=== PATIENT | male | born 1970 | race Caucasian/White ===

== ENCOUNTER 2018-08-18 21:30 | Inpatient (IN) | payer OTHER ==
--- NOTE | 2018-08-18 22:31 | C.PDOC ---
History Of Present Illness 48 y/o M p/w heroin abuse. Patient states uses 10 bags of heroin per day and wishes to stop abusing opiates. Denies any acute fever, chest pain, dyspnea. Time Seen by Provider: 08/18/18 22:27 Chief Complaint (Nursing): Medical Clearance Past Medical History Vital Signs: Last Vital Signs Temp 98.2 F 08/18/18 21:42 Pulse 95 H 08/18/18 21:42 Resp 16 08/18/18 21:42 BP 122/82 08/18/18 21:42 Pulse Ox 98 08/18/18 21:42 Family History: States: No Known Family Hx - Social History Hx Alcohol Use: Yes Hx Substance Use: Yes - Immunization History Hx Tetanus Toxoid Vaccination: No Hx Influenza Vaccination: No Hx Pneumococcal Vaccination: No Review Of Systems Except As Marked, All Systems Reviewed And Found Negative. Constitutional: Negative for: Fever Cardiovascular: Negative for: Chest Pain Physical Exam - Physical Exam Appears: No Acute Distress Skin: Normal Color Head: Normacephalic Oral Mucosa: Moist Neck: Supple Cardiovascular: Rhythm Regular Respiratory: No Accessory Muscle Use Gastrointestinal/Abdominal: Soft, No Tenderness Back: No CVA Tenderness Extremity: No Tenderness Pulses: Left Radial: Normal, Right Radial: Normal Neurological/Psych: Normal Speech ED Course And Treatment O2 Sat by Pulse Oximetry: 98 Disposition - Disposition Disposition: HOSPITALIZED Disposition Time: 22:30 Condition: FAIR - Clinical Impression Clinical Impression: Opioid use disorder, severe, dependence
--- NOTE | 2018-08-18 23:14 | PCM.BM ---
<Brock Mercado - Last Filed: 08/18/18 23:13> Treatment Plan Problems - Problems identified on initial assessmt ineffective coping skills Date Initiated: 08/18/18 Time Initiated: 23:14 Assessment reference: NA Status: Active Treatment assets and liabiliti Patient Assests: ADL independent Patient Liabilities: substance abuse - Milieu Protocol Maintain good personal hygiene: daily Encourage regular showers, daily Remind patient to perform daily oral care, daily Assist patient to perform ADL's Maintain personal safety: every shift Educate patient to report safety concerns to staff, every shift Monitor environment for contraband/sharps Medication safety: Monitor for expected outcome, potential side effects: every shift, Assess barriers to learning: every shift, Assess readiness for medication education: every shift <Brittany Gloria - Last Filed: 08/22/18 20:12> - Diagnosis (1) Opioid use disorder, severe, dependence Status: Acute Interventions: 08/19/18 20:12 * Assess 7x/week regarding severity of withdrawal * Educate regarding risks, benefits, side effects and alternatives of medications * Use Motivational Interviewing for abstinence * Use CBT for relapse prevention * Medication management for withdrawal symptoms * Encourage medication assisted treatment *
--- NOTE | 2018-08-19 08:43 | PCM.PSYCH ---
Initial Psychiatric Evaluation - Initial Psychiatric Evaluation Type of Admission: Voluntary Legal Status: Capacity Chief Complaint (in patient's own words): "Heroin" History of Present Illness and Precipitating Events: The patient is seen, chart reviewed and case discussed. Next and this is a 50-year-old male, single with one child who is 18 years old. The patient works on and off and lives alone. He is using IV heroin, 10 bags per day or more, for the last 20 years. He says he relapsed in January and has been increasingly using since then. He had or ODs in the past. He also uses ecstasy, quarter pint alcohol with some beer, 5 cigarettes a day. He denies the rest. He was in detox "a few times" and rehabilitation twice. Past psych history: He was diagnosed with depression but currently is not on medications. Prior to admission he was "very depressed" due to consequences of his heavy heroin use and he had some suicidal ideation. But since admission to detox he has been calmer and denies suicidal ideation. Family psych history: Denies Medical history: Denies Current Medications: Active Medications Generic Name Dose Route Start Last Admin Trade Name Freq PRN Reason Stop Dose Admin Al Hydrox/Mg Hydrox/Simethicone 30 ml 08/19/18 08:41 Maalox 30 Ml PO TID PRN Indigestion / Heartburn Clonidine HCl 0.1 mg 08/19/18 08:41 Catapres PO Q8 PRN COWS Score More or Equal to 5 Hydroxyzine HCl 25 mg 08/19/18 08:41 Atarax PO Q4H PRN Anxiety Ibuprofen 600 mg 08/19/18 08:41 Motrin Tab PO Q6H PRN Pain, moderate (4-7) Loperamide HCl 2 mg 08/19/18 08:41 Imodium PO Q8 PRN Diarrhea Ondansetron HCl 4 mg 08/19/18 08:41 Zofran Tab PO Q8 PRN Nausea/Vomiting Trazodone HCl 100 mg 08/19/18 08:41 Desyrel PO HS PRN Insomnia Past Psychiatric History - Past Psychiatric History Previous Treatment History: Intensive Outpatient (not intensive) Pertinent Medical Hx (Current Medical&Sleep Prob, Allergies): Allergies Allergy/AdvReac Type Severity Reaction Status Date / Time No Known Allergies Allergy Unverified 08/18/18 21:35 traZODone [trazodone Hydrochloride] 100 mg PO HS 08/18/18 Review of Systems - Psychiatric Psychiatric: Abnormal Sleep Pattern, Anhedonia, Anxiety, Behavioral Changes, Change in Appetite, Depression, Difficulty Concentrating, Hopelessness. absent: Hallucinations, Homicidal Ideation, Paranoia, Suicidal Ideation Mental Status Examination - Personal Presentation Personal Presentation: Looks older than stated age - Affect Affect: Constricted - Motor Activity Motor Activity: Calm - Reliability in Providing Information Reliability in Providing Information: Good - Speech Speech: Organized - Mood Mood: Depressed, Anxious - Formal Thought Process Formal Thought Process: No Impairment - Cognitive Functions Orientation: Person, Place, Situation, Time Sensorium: Alert Attention/Concentration: Easily distracted Estimate of Intelligence: Average Judgement: Intact, as evidence by: Insight regarding need for hospitalization Memory: Recent intact, as evidence by: Ability to recall events of the day, Remote intact, as evidenced by: Abilit to recall sig. life events - Risk Risk: Withdrawal, Diminished functioning - Strength & Assets Inventory Strength & Assets Inventory: Family support, Employment history, Cooperative - Limitations Limitations: Other DSM 5 DX - DSM 5 DSM 5 Diagnosis: Opioid withdrawal Opioid use disorder, severe Ecstasy (stimulant) use disorder, severe Alcohol use disorder, moderate Major depressive disorder, recurrent, moderate - Recommended/Plan of Treatment Treatment Recommendations and Plan of Treatment: Taper with methadone Gabapentin for augmentation and ecstasy use d/o Remeron for depressive symptoms Librium for alcohol As needed medications All risks, benefits and alternatives of the meds discussed, and the pt agreed and understood. Attend groups and activities Supportive therapy and psychoeducation [place] for abstinence CBT for relapse prevention Encourage MAT Refer to rehab or IOP, and self-help groups Teach healthy lifestyle methods, i.e. diet, exercise, meditation Smoking cessation with IL Nicotine patch if needed 34 min Projected ELOS: 5 days - Smoking Cessation Smoking Cessation Initiated: Yes
[2018-08-19] MEDS ORDERED: Aluminum Hydroxide/Magnesium Hydroxide Susp (30 mL) PO PRN (08:47)
[2018-08-19] MEDS: Multiple Vitamins Tab PO SCH (11:27)
--- NOTE | 2018-08-20 08:59 | PCM.PYCHPN ---
Psychiatric Progress Note - Psychiatric Progress Note Patient seen today, length of contact: 16 min Patient Chief Complaint: "I'm getting better" Problems Identified/Issues Discussed: The pt is seen, chart reviewed, case discussed with staff. The pt is compliant with medications and reports no side-effects. Symptoms are improving but needs more time to stabilize. After care discussed, support and psychoeducation given. Medication Change: Yes (detox changes daily) Medical Record Reviewed: Yes Mental Status Examination - Cognitive Function Orientation: Person, Place, Situation, Time Memory: Intact Attention: Poor Concentration: Poor Association: WNL Fund of Knowledge: WNL - Mood Mood: Anxious - Affect Affect: Constricted - Speech Speech: Appropriate - Formal Thought Process Formal Thought Process: No Impairment - Suicidal Ideation Suicidal Ideation: No - Homicidal Ideation Homicidal Ideation: No Goal/Treatment Plan - Goal/Treatment Plan Need for Continued Stay: Discharge may exacerbated symptoms, Severe functional impairment Progress Toward Problem(s) and Goals/Treatment Plan: Continue medications Support and psychoeducation daily Attend groups and activities daily After care planning by counselors [place] and CBT Refer to rehab
[2018-08-20] MEDS: Multiple Vitamins Tab PO SCH (09:58)
[2018-08-21] MEDS: Multiple Vitamins Tab PO SCH (11:02)
[2018-08-21 16:33] VITALS: BP 120/82; PULSE 62; RESP 18; TEMP 98.5; O2SAT 96
--- NOTE | 2018-08-21 18:49 | PCM.PYCHDC ---
Mental Status Examination - Mental Status Examination Orientation: Person, Place, Situation, Time Memory: Intact Mood: Neutral Affect: Other (Appropriate) Speech: Appropriate Attention: WNL Concentration: WNL Association: WNL Fund of Knowledge: WNL Formal Thought Process: No Impairment Description of patient's judgement and insight: Fair Psychotic Thoughts and Behaviors: None Suicidal Ideation: No Current Homicidal Ideation?: No Discharge Summary - Discharge Note Reason for Hospitalization: Opiate use disorder severe. Stimulant use disorder severe. Alcohol use disorder moderate. Major depressive disorder recurrent moderate Consultations:: List each consultation separately and include: 1. Reason for request. 2. Findings. 3. Follow-up Summary of Hospital Course include:: 1. Description of specific treatment plan utilized for patients during their course of treatmen. 2. Summarize the time- course for resolution of acute symptoms and/or regressed behaviors. 3. Describe issues identified and worked on during hospitalization. 4. Describe medication utilized. 5. Describe medical problems identified and treated. 6. Reassessment of suicide risk Summary of Hospital Course: The patient is seen, chart reviewed and case discussed. Next and this is a 50-year-old male, single with one child who is 18 years old. The patient works on and off and lives alone. He is using IV heroin, 10 bags per day or more, for the last 20 years. He says he relapsed in January and has been increasingly using since then. He had or ODs in the past. He also uses ecstasy, quarter pint alcohol with some beer, 5 cigarettes a day. He denies the rest. He was in detox "a few times" and rehabilitation twice. Past psych history: He was diagnosed with depression but currently is not on medications. Prior to admission he was "very depressed" due to consequences of his heavy heroin use and he had some suicidal ideation. But since admission to detox he has been calmer and denies suicidal ideation. Family psych history: Denies Medical history: Denies. During his stay in the hospital patient was treated with Librium taper for alcohol withdrawal symptoms and methadone taper for opiate withdrawal symptoms. Patient was getting other when necessary medications and with the above treatment patient started feeling better. Today patient decided to leave the hospital without completion of the treatment. Education provided to the patient about completion of the treatment. Patient refused to stay. Patient was also educated that in case of any adverse event including relapse, decompensation, overdose or of the patient, patient will be responsible for his actions. Patient understood and agreed with the above but still refuses to stay and left the unit AGAINST MEDICAL ADVICE. At the time of evaluation and discharge, patient was awake, alert and oriented 3, had no delusions, no auditory or visual hallucinations, no suicidal ideations or homicidal ideations. Patient was discharged in a stable condition. - Final Diagnosis (DSM 5) Condition upon Discharge: FAIR Disposition: AGAINST MEDICAL ADVICE Follow-up Treatment Plan: Patient will go to [place], [place] for follow-up care after discharge from the hospital. - Smoking Cessation Smoking Cessation Medication prescribed: No - Antipsychotic Medications Pt discharged on 2 or more routine antipsychotic medications: No
== END 2018-08-21 16:00 | disposition left against medical advice (07) | DRG 743 ==
LOC: C.ER 21:30 → C.7D 22:28
PROVIDERS: ADMIT Psychiatry & Neurology Psychiatry; ATTEND Psychiatry & Neurology Psychiatry
PROC: HZ2ZZZZ Detoxification Services for Substance Abuse Treatment (ICD-10-PCS; principal; 2018-08-18)
PROC: HZ59ZZZ Individual Psychotherapy for Substance Abuse Treatment, Supportive (ICD-10-PCS; 2018-08-18)
PROC: GZ3ZZZZ Medication Management (ICD-10-PCS; 2018-08-18)
PROC: HZ46ZZZ Group Counseling for Substance Abuse Treatment, Psychoeducation (ICD-10-PCS; 2018-08-18)
PROC: GZHZZZZ Group Psychotherapy (ICD-10-PCS; 2018-08-18)
PROC: GZ56ZZZ Individual Psychotherapy, Supportive (ICD-10-PCS; 2018-08-18)
PROC: HZ80ZZZ Medication Management for Substance Abuse Treatment, Nicotine Replacement (ICD-10-PCS; 2018-08-18)
DX: F11.23 Opioid dependence with withdrawal (principal); F33.1 Major depressive disorder, recurrent, moderate; F10.20 Alcohol dependence, uncomplicated; F15.20 Other stimulant dependence, uncomplicated; F17.210 Nicotine dependence, cigarettes, uncomplicated; R45.851 Suicidal ideations

== ENCOUNTER 2018-09-12 14:58 | Emergency (ER) | payer OTHER ==
[2018-09-12 15:26] VITALS: RESP 18
[2018-09-12] MEDS ORDERED: Naloxone 0.4 mg/ml Inj (Adult) IM ONE (18:38)
--- NOTE | 2018-09-12 18:40 | C.PDOC ---
History Of Present Illness 48 y/o male, with PMhx of depression, hepatitic C, heroin abuse, presents to ER stating that he has been feeling very depressed. Patient states he uses bith heroin and fentanyl. Also states that his children has been taken away from him and has been increasingly depressed since then. Patient denies suicidal/homicidal ideations, and has no current physical complaints. Time Seen by Provider: 09/12/18 16:44 Chief Complaint (Nursing): Psychiatric Evaluation History Per: Patient History/Exam Limitations: no limitations Onset/Duration Of Symptoms: Persistent Current Symptoms Are (Timing): Still Present Modifying Factor(s): Narcotics Severity: Moderate Associated Symptoms: Depression. 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 SUBSTANCE ABUSE TREATMENT, PSYCHOEDUCATION (08/18/18) GROUP PSYCHOTHERAPY (08/18/18) INDIV PSYCHOTHERAPY FOR SUBSTANCE ABUSE TREATMENT, SUPPORT (08/18/18) INDIVIDUAL PSYCHOTHERAPY, SUPPORTIVE (08/18/18) MEDICATION MANAGEMENT (08/18/18) MEDS MGMT FOR SUBSTANCE ABUSE TREATMENT, NICOTINE REPLACE (08/18/18) Family History: States: No Known Family Hx - Social History Hx Alcohol Use: No Hx Substance Use: Yes - Immunization History Hx Tetanus Toxoid Vaccination: No Hx Influenza Vaccination: No Hx Pneumococcal Vaccination: No Review Of Systems Constitutional: Negative for: Fever, Chills Cardiovascular: Negative for: Chest Pain, Palpitations Respiratory: Negative for: Shortness of Breath Gastrointestinal: Negative for: Nausea, Vomiting, Abdominal Pain, Diarrhea Genitourinary: Negative for: Dysuria, Hematuria Neurological: Negative for: Weakness, Numbness Psych: Positive for: Depression. Negative for: Suicidal ideation Physical Exam - Physical Exam Appears: Non-toxic, No Acute Distress, Other (Flat affect; drowsy appearing ) Skin: Normal Color, Warm, Dry Head: Atraumatic, Normacephalic Eye(s): bilateral: Other (pinpoint pupils) Oral Mucosa: Moist Cardiovascular: Rhythm Regular, No Murmur Respiratory: Normal Breath Sounds, No Rales, No Rhonchi, No Wheezing Gastrointestinal/Abdominal: Normal Exam, Bowel Sounds, Soft, No Tenderness Extremity: Bilateral: Atraumatic, Normal Color And Temperature, Normal ROM Neurological/Psych: Other (drowsy but AAOx3) Gait: Steady ED Course And Treatment O2 Sat by Pulse Oximetry: 100 (RA) Pulse Ox Interpretation: Normal Progress Note: Blood work, UA, UDS ordered and reviewed. Patient caught injecting heroin in our ER bathroom. Crisis notified, psychiatrist still willing to admit patient psychiatrically. However patient then refused admission and requested discharge home. Reevaluation Time: 19:29 Reassessment Condition: Improved (Patient currently AAOx3, ambulating normally in ED, and is clinically sober. Patient denies SI/HI. Will discharge.) Disposition Counseled Patient/Family Regarding: Diagnosis, Need For Followup - Disposition Referrals: Min Maher MD [Staff Provider] - Disposition: HOME/ ROUTINE Disposition Time: 19:29 Condition: STABLE Instructions: Drug Abuse and Drug Addiction (DC), Depression Forms: [employer] (Cameroonian) Print Language: ESTONIAN - Clinical Impression Clinical Impression: Opiate dependence, Depression - Scribe Statement The provider has reviewed the documentation as recorded by the Baltazaribgracie Okeefe Provider Attestation: All medical record entries made by the Scribe were at my direction and personally dictated by me. I have reviewed the chart and agree that the record accurately reflects my personal performance of the history, physical exam, medical decision making, and the department course for this patient. I have also personally directed, reviewed, and agree with the discharge instructions and disposition.
[2018-09-12] MEDS ORDERED: Naloxone 0.4 mg/ml Inj (Adult) ONE (19:00)
[2018-09-12 19:31] VITALS: BP 105/66; PULSE 93; TEMP 98.3
[2018-09-22 13:28] VITALS: O2SAT 100
== END 2018-09-12 20:04 | disposition home or self-care (01) ==
LOC: C.ER 14:58
DX: F32.9 Major depressive disorder, single episode, unspecified (principal); F11.20 Opioid dependence, uncomplicated